=== PATIENT | male | born 1945 | race Caucasian/White ===

== ENCOUNTER → 2016-09-07 | Outpatient (CLI) | payer OTHER, MEDICARE ==
[2016-09-07 08:42] LABS: HEMATOCRIT 46.5 % (42.0-52.0); HEMOGLOBIN 15.8 gm/dL (14.0-18.0); MCH 32.6 pg (26.0-34.0); MCHC 34.1 g/dL (28.0-37.0); MCV 95.5 fL (80.0-100.0); RBC 4.87 mil/uL (4.50-6.00); RDW 12.7 % (10.5-14.5)
[2016-09-07 08:50] LABS: CALCIUM 9.1 mg/dL (8.5-10.1); CREATININE 1.3 mg/dL (0.7-1.3); POTASSIUM 4.4 mmol/L (3.5-5.1)
[2016-09-07 08:55] LABS: ALBUMIN 3.4 g/dL (3.4-5.0); TOTAL BILIRUBIN 0.6 mg/dL (<0.1-1.0)
== END ==
LOC: CAT 07:36 → CATH 13:48
PROVIDERS: Internal Medicine Cardiovascular Disease
DX: I48.91 Unspecified atrial fibrillation (principal)

== ENCOUNTER 2016-10-01 06:41 | Observation (INO) | payer OTHER, MEDICARE ==
[2016-10-01] VITALS (8 sets, daily range): BP systolic 93–134; BP diastolic 51–76
[~2016-10-01] VITALS: Ht 180.3 cm; Wt 89.0 kg
--- NOTE | ~2016-10-01 | P ---
[facility] [place] [address] PROCEDURE REPORT Name: TUSHAR TOTH Room #: REG Edwina Ta.#: [id number] Admission: 10/01/16 Attend Phys: Samuel Daniel MD Discharge: Date of : 45 Report #: [id number] THIS REPORT FOR: //name// CC: YOANNA Daniel PROCEDURE: AFib ablation. PREOPERATIVE DIAGNOSIS: Paroxysmal atrial fibrillation. POSTOPERATIVE DIAGNOSIS: Paroxysmal atrial fibrillation. HISTORY: The patient is a 71-year-old with paroxysmal AFib, who has failed anti-arrhythmic drug therapy and is here for an ablation. DESCRIPTION OF PROCEDURE: The patient underwent informed consent. We discussed the details of the procedure including the risks, which include but not limited to bleeding, infection, cardiac perforation, stroke or IN. He understood these risks and is willing to proceed. He was brought to the EP laboratory in fasting and sedated state, prepped and draped in a sterile fashion. I injected 10 mL of lidocaine into the right groin and obtained access to the right femoral vein times 3, placing 8, 9 and 7-Ukrainian locking sheaths using the modified Seldinger technique. Under fluoroscopic guidance, I placed a decapolar catheter easily in the coronary sinus and an ice catheter into the right atrium. He had what appeared to be a nice thin-appearing septum. The patient was systemically heparinized and using an SL1 sheath and [place] needle, the transseptal was performed. I crossed in the mid anterior septum with the needle. I did have some difficulty advancing the SL1 sheath over the wire as there was some fibrosis in the septum. Eventually, I was able to cross. Then, I exchanged the SL1 sheath for the Cryo sheath and again this was somewhat challenging. I had to torque the sheath to try and cross the septum. Eventually, we crossed and the cryoballoon was placed in the left atrium. At baseline, the patient was in sinus rhythm with a sinus cycle length of 1075 milliseconds, NH interval 165 milliseconds, QRS duration 80 milliseconds and QT interval 470 milliseconds. I first isolated the left superior pulmonary vein and this isolated within 73 seconds and I performed a single 4-minute freeze in this vein. I then turned my attention to the left inferior pulmonary vein and this vein was isolated within 2 freezes each of 4 minutes' duration. Next, I turned my attention to the right superior pulmonary vein. During the second freeze, the vein isolated at 150 seconds. The second freeze was 270 seconds in duration. The right inferior pulmonary vein isolated within 90 seconds of the first freeze. I performed two 4-minute freezes in this vein. All the veins were re-interrogated and were found to be isolated. As such, the [address] [address] PROCEDURE REPORT Name: TUSHAR TOTH Room #: REG OMAR Sawant#: [id number] Admission: 10/01/16 Attend Phys: Samuel Daniel MD Discharge: Date of : 45 Report #: [id number] procedure was concluded. Using intracardiac ultrasound, I verified there was no pericardial effusion. As such, all catheters were pulled. Next, the patient received systemic protamine. Once the ACT was within acceptable range, sheaths were pulled and hemostasis obtained. The patient awoke neurologically and hemodynamically intact. No complications. No significant bleeding. Post-ablation, he was in sinus rhythm with a sinus cycle length of 825 milliseconds, NH interval 170 milliseconds, QRS duration 80 milliseconds and QT interval 425 milliseconds. CONCLUSIONS: Successful atrial fibrillation ablation with isolation of the 4 pulmonary veins using the cryoablation balloon. By: 1055 1144 Samuel Daniel MD /nt
[2016-10-01] MEDS ORDERED: ASPIR 8181 MG PO (07:07)
[2016-10-01] MEDS ORDERED: ELIQUIS5 MG PO (07:07)
[2016-10-01] MEDS ORDERED: TOPROL XL25 MG PO (07:07)
[2016-10-01] MEDS ORDERED: RYTHMOL SR225 MG PO (07:08)
[2016-10-01] MEDS ORDERED: SIMVASTATIN40 MG PO (07:08)
[2016-10-01 07:18] LABS: HEMATOCRIT 49.5 % (42.0-52.0); HEMOGLOBIN 16.8 gm/dL (14.0-18.0); MCH 32.4 pg (26.0-34.0); MCHC 33.9 g/dL (28.0-37.0); MCV 95.7 fL (80.0-100.0); PLATELET COUNT 155 thou/uL (150-400); RBC 5.17 mil/uL (4.50-6.00); WBC 6.3 thou/uL (4.0-11.0)
[2016-10-01 07:19] LABS: MANUAL DIFF YES
[2016-10-01 07:28] LABS: CALCIUM 9.2 mg/dL (8.5-10.1); CREATININE 1.3 mg/dL (0.7-1.3); POTASSIUM 4.7 mmol/L (3.5-5.1)
[2016-10-01 07:32] LABS: APTT 30.7 Seconds (24.5-32.8); INR 1.1
[2016-10-01 07:33] LABS: ALBUMIN 3.7 g/dL (3.4-5.0); TOTAL BILIRUBIN 0.6 mg/dL (<0.1-1.0); TOTAL PROTEIN 7.5 g/dL (6.4-8.2)
[2016-10-01 08:24] LABS: ABSOLUTE NEUTROPHILS 3.7 thou/uL (1.4-8.2); TOTAL CELL COUNT 100
[2016-10-01 08:25] LABS: ANISOCYTOSIS SLIGHT
[2016-10-02 03:24] VITALS: BP 98/51
[2016-10-02 07:20] VITALS: BP 110/63
[2016-10-02 09:52] VITALS: BP 110/63
[2016-10-02 09:54] VITALS: BP 123/66
== END 2016-10-02 10:43 | disposition home or self-care (01) ==
LOC: CATH 06:41 → 2N 12:25 → CATH 12:27 → 2N 10-02 10:43
PROVIDERS: Internal Medicine Cardiovascular Disease
DX: I48.0 Paroxysmal atrial fibrillation (principal)
CPT/HCPCS: 62110; 62900; 70005

== ENCOUNTER 2017-12-29 11:44 | Inpatient (IN) | payer OTHER, MEDICARE ==
[~2017-12-29] VITALS: Ht 182.9 cm; Wt 84.0 kg
--- NOTE | ~2017-12-29 | 2DMMODE ---
[facility] [address] [place] [address] 2 D/M-MODE ECHOCARDIOGRAM Name: MABELBRIATUSHAR BLANK Room #: 214-P [facility] IN M..#: [id number] Admission: 12/29/17 Attend Phys: Sunil Veliz, Discharge: Date of : 45 Date of Service: 12/30/17 1113 Report #: [id number] THIS REPORT FOR: //name// APPROVED REPORT Study performed: 12/30/2017 09:44:50 EXAM: Comprehensive 2D, Doppler, and color-flow Echocardiogram Patient Location: In-Patient Room #: 214 Status: routine BSA: 2.08 HR: 56 bpm BP: 108/65 mmHg Other Information Study Quality: Adequate Indications Congestive Heart Failure Fever S/P ablation 12/25/2017 2D Dimensions RVDd: 36.68 mm IVSd: 7.61 (7-11mm) LVOT Diam: 23.25 (18-24mm) LVDd: 46.89 mm PWd: 8.57 (7-11mm) Ascending Ao: 28.09 (22-36mm) LVDs: 30.69 (25-40mm) Aortic Root: 29.40 mm IVC: 12.00 mm Volumes Left Atrial Volume (Systole) Single Plane 4CH: 34.59 mL Single Plane 2CH: 51.11 mL LA ESV Index: 23.00 mL/m2 Aortic Valve AoV Peak Zachery.: 1.13 m/s AO Peak Gr.: 5.08 mmHg LVOT Max P.25 mmHg LVOT Max V: 1.15 m/s JAIDEN Vmax: 4.31 cm2 Mitral Valve E/A Ratio: 1.2 MV Decel. Time: 328.04 ms MV E Max Zachery.: 0.71 m/s [facility] [address] [place] [address] 2 D/M-MODE ECHOCARDIOGRAM Name: TUSHAR TOTH Room #: 214-P [facility] IN M.R.#: [id number] Admission: 12/29/17 Attend Phys: Sunil Veliz, Discharge: Date of : 45 Date of Service: 12/30/17 1113 Report #: [id number] MV A Zachery.: 0.57 m/s MV PHT: 95.13 ms IVRT: 103.81 ms Pulmonary Valve PV Peak Zachery.: 0.90 m/s PV Peak Gr.: 3.27 mmHg Pulmonary Vein P Vein S: 0.52 m/s P Vein A: 0.17 m/s P Vein D: 0.63 m/s P Vein A Dur.: 124.6 msec P Vein S/D Ratio: 0.83 Tricuspid Valve TR Peak Zachery.: 2.54 m/s RAP Estimate: 5.00 mmHg TR Peak Gr.: 25.81 mmHg PA Pressure: 31.00 mmHg Left Ventricle The left ventricle is normal size. There is normal left ventricular wall thickness. The left ventricular systolic function is normal. The left ventricular ejection fraction is within the normal range. LVEF is 55-60%. Right Ventricle The right ventricle is normal size. The right ventricular systolic function is normal. Atria The left atrium size is normal. The right atrium size is normal. Aortic Valve The aortic valve is normal in structure. No aortic regurgitation is present. There is no aortic valvular stenosis. Mitral Valve The mitral valve is normal in structure. Trace to mild mitral regurgitation. No evidence of mitral valve stenosis. Tricuspid Valve The tricuspid valve is normal in structure. Trace tricuspid regurgitation. PAP is estimated at 31 mmHg. Pulmonic Valve The pulmonary valve is normal in structure. Mild pulmonic regurgitation. [facility] [address] [place] [address] 2 D/M-MODE ECHOCARDIOGRAM Name: NAVNEETTUSHAR BLANK Room #: 214-P [facility] IN .#: [id number] Admission: 12/29/17 Attend Phys: Sunil Veliz, Discharge: Date of : 45 Date of Service: 12/30/17 1113 Report #: [id number] Great Vessels The aortic root is normal in size. IVC is normal in size and collapses >50% with inspiration. Pericardium There is no pericardial effusion. <Conclusion> The left ventricle is normal size. LVEF is 55-60%. The right ventricle is normal size. The left atrium size is normal. The aortic valve is normal in structure. Trace to mild mitral regurgitation. Trace tricuspid regurgitation. PAP is estimated at 31 mmHg. The aortic root is normal in size. There is no pericardial effusion. <ELECTRONICALLY SIGNED> By: Sunil Veliz MD, FACC 12/30/17 1113 1113 111 Sunil Veliz MD, FACC /INF
--- NOTE | ~2017-12-29 | EKG ---
[address] [address] ELECTROCARDIOGRAM REPORT Name: NAVNEETTUSHAR Room #: 214-[facility] IN M.R.#: [id number] Admission: 12/29/17 Attend Phys: Sunil Veliz MD, Discharge: 01/01/18 Date of : 45 Report #: [id number] THIS REPORT FOR: //name// [facility] Test Date: 2018-01-01 Test Time: 08:28:48 Pat Name: TUSHAR TOTH Department: Room: 214 P Gender: M General Education Professor: CLAUDIO : 1945 Requested By: Samuel Daniel Order Number: [id number] MD: Samuel Daniel Measurements Intervals Aurora Rate: 47 P: 45 CO: 154 QRS: 8 QRSD: 90 T: 30 QT: 488 QTc: 432 Interpretive Statements Sinus bradycardia Borderline low voltage, extremity leads Baseline wander in lead(s) V6 Compared to ECG 12/30/2017 06:30:27 Sinus rhythm no longer present Electronically Signed On 01-01-2018 16:25:06 CDT by Samuel Daniel [email or web address] <ELECTRONICALLY SIGNED> By: Samuel Daniel MD 01/01/18 1625 7 7 Samuel Daniel MD /EPI
--- NOTE | ~2017-12-29 | EKG ---
[address] [address] ELECTROCARDIOGRAM REPORT Name: TUSHAR TOTH Room #: 214-P ADM IN M.R.#: [id number] Admission: 12/29/17 Attend Phys: Sunil Veliz MD, Discharge: Date of : 45 Report #: [id number] THIS REPORT FOR: //name// [facility] [place] [place] Test Date: 2017-12-29 Test Time: 15:18:53 Pat Name: TUSHAR TOTH Department: Room: 214 P Gender: M Bridge Crane Operator: tessa : 1945 Requested By: Sunil eVliz Order Number: [id number] MD: Samuel Daniel Measurements Intervals [place] Rate: 82 P: 53 TN: 162 QRS: -22 QRSD: 84 T: 34 QT: 369 QTc: 431 Interpretive Statements Sinus rhythm Borderline left axis deviation No previous ECG available for comparison Electronically Signed On 12-30-2017 17:39:47 CDT by Samuel Daniel [email or web address] <ELECTRONICALLY SIGNED> By: Samuel Daniel MD 12/30/17 1739 1518 17 Samuel Daniel MD /ERIKA
--- NOTE | ~2017-12-29 | HC ---
[facility] [place] [address] CONSULTATION Name: TUSHAR TOTH Room #: 214-P ADM IN M.R.#: [id number] Admission: 12/29/17 Attend Phys: Sunil Veliz MD, Discharge: Date of : 45 Report #: [id number] THIS REPORT FOR: //name// CC: FAM physician/PCP Sunil Veliz DATE OF SERVICE: 12/30/2017 ATTENDING PHYSICIAN: Dr. Veliz. CONSULTATION REQUESTED BY: Samuel Daniel MD. REASON FOR CONSULTATION: Antibiotic management. HISTORY OF PRESENT ILLNESS: This is a 72-year-old white man admitted with dysuria, frequent urination and fevers and malaise that failed to respond to oral Augmentin. The patient recently hospitalized on 12/25/2017 and he undergoes atrial flutter/fibrillation ablation procedure by Dr. Samuel Daniel. He did require orotracheal intubation and also placement of Ghotra catheter. The patient goes on developing a urinary symptomatology and fever and I discussed the patient's situation with Dr. Samuel Daniel and recommend Augmentin 875 mg b.i.d. I did discuss again with Dr. Sunil Veliz on Saturday and recommended admission and started the patient on meropenem 1 gram IV every 8 hours. The patient feels some better today. During echocardiogram and left lateral decubitus, he did experience a brief episode of right lower abdominal quadrant pain. DRUG ALLERGIES: None listed. MEDICATIONS: The patient is currently on treatment with vancomycin 1 gram single dose today, sotalol 80 mg b.i.d., atorvastatin 20 mg at bedtime, apixaban 5 mg b.i.d., prednisolone ophthalmic q.i.d., meropenem 1 g IV every 8 hours. SOCIAL HISTORY: Retired hospital university administrator. . Three children. Living in [place]. REVIEW OF SYSTEMS: As above. PHYSICAL EXAMINATION: GENERAL: Well-developed, not toxic looking man. VITAL SIGNS: Presenting a temperature of 103 on 12/29/2017 at 17:06, at 100.8 this morning, pulse 60, respirations 17, BP on the low side 99/50 today. HEENMT: Within range. NECK: Supple, no thyromegaly. LYMPHATIC: Lymph nodes are negative. LUNGS: Clear to auscultation. [facility] [address] [place] [address] CONSULTATION Name: TUSHAR TOTH Room #: 214-P [facility] IN M.R.#: [id number] Admission: 12/29/17 Attend Phys: Sunil Veliz MD, Discharge: Date of : 45 Report #: [id number] HEART: S1, S2. No gallop or murmur. ABDOMEN: Minimal discomfort right lower abdominal quadrant. GENITALIA AND RECTAL: Deferred. EXTREMITIES: No clubbing, cyanosis, no superficial phlebitis, no hematoma of groin. LABORATORY DATA: Chest x-ray normal. The previous left basilar atelectasis has resolved. Sodium 132, potassium 3.9, BUN 15, creatinine 1.4, glucose 113, albumin 3 g/dL. WBC yesterday 16.8, hemoglobin 15.5, platelets 132,000. Repeat CBC today revealed a white blood cell count down to 15,800, hemoglobin 14.2 g/dL, platelets 141,000. No white blood cell count differential. Blood and urine cultures negative. ASSESSMENT: 1. Acute urinary tract infection, possible prostatitis versus pyelonephritis, undetermined organism. 2. Persistent fever secondary to above. 3. Leukocytosis, improving. 4. Status post recent ablation for atrial flutter/fibrillation. 5. Dyslipidemia. SUGGESTIONS: Recommend continue treatment with meropenem 1 gram IV every 8 hours. I have nothing against the prescription for vancomycin. We will have pharmacy dose this, but I doubt we are dealing with MRSA and UTI. We will obtain MRSA screen, ESR and CRP as well as procalcitonin. Dr. Samuel Daniel, thank you for requesting my suggestions. <ELECTRONICALLY SIGNED> By: Cornelius Daniel MD 12/30/17 1413 1139 1359 Cornelius Daniel MD /nt
--- NOTE | ~2017-12-29 | H ---
[facility] [place] [address] HISTORY AND PHYSICAL Name: TUSHAR TOTH Room #: 214-P [facility] IN M.R.#: [id number] Admission: 12/29/17 Attend Phys: Sunil Veliz MD, Discharge: 01/01/18 Date of : 45 Report #: [id number] THIS REPORT FOR: //name// CC: MAKAYLA physician/PCP Sunil Veliz DATE OF SERVICE: 12/29/2017 HISTORY OF PRESENT ILLNESS: The patient is a 72-year-old male, well known to myself and my partner, Dr. Daniel. He is status post a repeat AFib ablation last week. He subsequently was seen on Saturday with some fever and some dysuria. A UA suggested, although culture was not back, a possible urinary tract infection. He was started on Augmentin b.i.d. Did not receive a dose on Saturday. I was called yesterday, still having intermittent fevers to 103 and generalized malaise with some mild dysuria. He was able to take fairly decent p.o. intake. Still having 103 temperature this morning now after 4 doses of Augmentin and diarrhea, and certainly not confused, but somewhat lethargic. I made him a direct admit to the CCU for IV antibiotics, urine culture, chest x-ray, blood cultures. He has maintained in sinus rhythm with a rate in the 70s. He has been febrile even here in the hospital to 103. No syncope or presyncope. He has had a history of bradycardia on the sotalol in the past when he was transiently at [facility] with AFib, although his rate is in 70s here. CURRENT MEDICATIONS: At home are Eliquis 5 b.i.d., simvastatin 40 and sotalol 80 b.i.d. PAST MEDICAL HISTORY: Positive for the recurrent paroxysmal AFib, mild cardiomyopathy was felt to be due to the AFib and tachycardia initially, EF in the 40-45% range. There has been some mild heart failure exacerbation, although none recently. Borderline hypertension, hyperlipidemia, sleep apnea, prior syncope, hernia repair, loop monitor placement, Achilles tendon repair and now his second AFib ablation. SOCIAL HISTORY: He is . They have children. 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 He predominantly lives in [place]. His children are here in town. He has never been on tobacco, some very minimal social alcohol use. FAMILY HISTORY: Negative for premature coronary artery disease or sudden . LABORATORY DATA: Relatively unremarkable. Creatinine is 1.4. White count is 16,000; otherwise normal limits. REVIEW OF SYSTEMS: Essentially negative except for this urinary tract dysuria issue and now some increased frequency. PHYSICAL EXAMINATION: [facility] [address] [place] [address] HISTORY AND PHYSICAL Name: TUSHAR TOTH Room #: 214-P [facility] IN M.R.#: [id number] Admission: 12/29/17 Attend Phys: Sunil Veliz MD, Discharge: 01/01/18 Date of : 45 Report #: [id number] GENERAL: He is flushed, but he is in no distress. He is completely oriented. VITAL SIGNS: Blood pressure 130/74, pulse 70s. HEENT: Eyes reveal xanthelasmas. Pharynx is clear. NECK: Shows preserved upstrokes without JVD or bruits. LUNGS: Clear. CARDIAC: Regular rate and rhythm, S1, S2. There is no murmur or gallop. ABDOMEN: Soft. No HSM or abdominal bruit. EXTREMITIES: Reveal no edema. The groin appears stable. No significant hematoma or ecchymosis. NEUROLOGIC: Intact. MUSCULOSKELETAL: No gross joint deformity, mild arthritic changes. SKIN: Warm and dry without xanthoma or ulcer. ASSESSMENT: 1. Urosepsis with persistent high fever, dysuria, awaiting urine culture. 2. Status post repeat atrial fibrillation ablation 1 week prior. 3. Hypercholesterolemia. 4. Obstructive sleep apnea. 5. 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 RECOMMENDATIONS AND PLAN: I have instituted meropenem after discussion with Dr. Cornelius Daniel of Infectious Disease. I will continue his cardiac meds including his novel agent, his DOAC. There has been no bleeding issue. A urine culture has been repeated. I have a set of blood cultures that have been sent and we will repeat the CBC in the a.m. He is taking adequate p.o. intake. We will repeat the EKG in the a.m. in addition. I do not see any other obvious source for this infection. Chest x-ray was unremarkable 48 hours ago. I will repeat a chest x-ray in the morning in addition. <ELECTRONICALLY SIGNED> By: Sunil eVliz MD, FACC 01/08/18 1257 1731 1749 Sunil Veliz MD, FACC /nt
--- NOTE | ~2017-12-29 | D ---
[facility] [place] [address] DISCHARGE SUMMARY Name: TUSHAR TOTH Room #: 214-P [facility] IN M.R.#: [id number] Admission: 12/29/17 Attend Phys: Sunil Veliz MD, Discharge: 01/01/18 Date of : 45 Report #: [id number] THIS REPORT FOR: //name// CC: MAKAYLA physician/PCP Sunil Veliz DATE OF SERVICE: 01/01/2018 HOSPITAL COURSE: The patient is a 72-year-old male who was admitted by me over the weekend. He was status post repeat AFib ablation. Was doing well from a cardiovascular perspective, but had persistently high fevers, felt to be due to instrumentation for Ghotra catheter. No other source of urinary tract infection. Attempted to treat outpatient 3-4 doses of Augmentin, but still persistent fevers to 103. Subsequently, he was brought in and initiated on meropenem q.8h. per Infectious Disease recommendations. Vancomycin was also added. He has remained in sinus rhythm, sinus naresh. He has remained anticoagulated. The urine culture has not grown out yet. Blood cultures have also been sent. They were negative. He was significantly ill at his admission. Markedly improved currently. He will be discharged to home on Eliquis 5 b.i.d., simvastatin 40. We are holding the sotalol now for 3 doses and then, we will discontinue sotalol and initiate flecainide tomorrow night because of QT issues. Baby aspirin will also continue. Levaquin 750 q. day for 1 week. Resume regular aerobic activity. DISCHARGE DIAGNOSES: 1. Complicated urinary tract infection/pyelonephritis/urosepsis. 2. Mild idiopathic cardiomyopathy. 3. Status post repeat atrial fibrillation ablation. 4. Hypercholesterolemia. RECOMMENDATIONS AND PLANS: As stated above. The patient has followup scheduled in March. He will call with any issues. <ELECTRONICALLY SIGNED> By: Sunil Veliz MD, FACC 01/08/18 1257 0917 1155 Sunil Veliz MD, FACC /nt
[~2017-12-29 11:44] MED LIST: ASPIR 8181 MG PO; ELIQUIS5 MG PO; RYTHMOL SR225 MG PO; SIMVASTATIN40 MG PO; SORINE 80 MG TA80 MG PO; TOPROL XL25 MG PO
[2017-12-29 12:29] VITALS: BP 134/71
[2017-12-29 13:00] LABS: HEMATOCRIT 45.1 % (42.0-52.0); HEMOGLOBIN 15.5 gm/dL (14.0-18.0); MCH 32.5 pg (26.0-34.0); MCHC 34.3 g/dL (28.0-37.0); MCV 94.8 fL (80.0-100.0); RBC 4.76 mil/uL (4.50-6.00); RDW 12.7 % (10.5-14.5); WBC 16.8 thou/uL (4.0-11.0)
[2017-12-29] MEDS ORDERED: CLAVULANATE PO (13:01)
[2017-12-29] MEDS ORDERED: AMOXICILLIN PO (13:01)
[2017-12-29] MEDS ORDERED: PAIN & FEVER500 MG PO (13:03)
[2017-12-29 13:09] LABS: CALCIUM 8.9 mg/dL (8.5-10.1); CREATININE 1.4 mg/dL (0.7-1.3); POTASSIUM 3.9 mmol/L (3.5-5.1)
[2017-12-29 13:15] LABS: TOTAL BILIRUBIN 0.9 mg/dL (<0.1-1.0); TOTAL PROTEIN 7.6 g/dL (6.4-8.2)
[2017-12-29] MEDS ORDERED: PRED-FORTE OPHTH1 M1 OPHTHALMIC (13:28)
[2017-12-29 13:41] LABS: URINE BILIRUBIN NEGATIVE (Negative); URINE BLOOD 3+ (Negative); URINE CLARITY CLEAR; URINE COLOR YELLOW; URINE GLUCOSE-RANDOM* NEGATIVE (Negative); URINE KETONES 1+ (Negative); URINE LEUKOCYTES-REFLEX NEGATIVE (Negative); URINE NITRITE-REFLEX NEGATIVE (Negative); URINE PROTEIN (DIPSTICK) 1+ (Negative); URINE SPECIFIC GRAVITY 1.025 (1.005-1.035); URINE UROBILINOGEN 0.2 E.U./dl (0.2-1.0)
[2017-12-29 13:51] LABS: BACTERIA-REFLEX 1-9 Few /HPF (None Seen); URINE WBC-REFLEX 6-15 Few /HPF (0-5)
[2017-12-29 13:52] LABS: CASTS None Seen /LPF (None Seen); CRYSTALS None Seen /LPF (None Seen); SQUAMOUS None Seen /LPF (0-3); URINE RBC 3-10 Few /HPF (0-2)
[2017-12-29 15:52] VITALS: BP 132/75
[2017-12-29 19:34] VITALS: BP 112/64
[2017-12-30 04:33] LABS: HEMATOCRIT 42.4 % (42.0-52.0); HEMOGLOBIN 14.2 gm/dL (14.0-18.0); MCH 31.7 pg (26.0-34.0); MCHC 33.5 g/dL (28.0-37.0); MCV 94.8 fL (80.0-100.0); RBC 4.47 mil/uL (4.50-6.00); RDW 12.5 % (10.5-14.5); WBC 15.8 thou/uL (4.0-11.0)
[2017-12-30 07:39] VITALS: BP 108/65
[2017-12-30 11:15] VITALS: BP 99/50
[2017-12-30 15:49] VITALS: BP 110/72
[2017-12-30 20:20] VITALS: BP 120/66
[2017-12-31 04:54] VITALS: BP 116/65
[2017-12-31 07:36] VITALS: BP 108/65
[2017-12-31 09:18] LABS: HEMATOCRIT 42.1 % (42.0-52.0); HEMOGLOBIN 14.6 gm/dL (14.0-18.0); MCH 32.7 pg (26.0-34.0); MCHC 34.8 g/dL (28.0-37.0); RBC 4.47 mil/uL (4.50-6.00); RDW 12.4 % (10.5-14.5); WBC 8.9 thou/uL (4.0-11.0)
[2017-12-31 11:37] VITALS: BP 115/65
[2017-12-31 17:33] VITALS: BP 106/65
[2017-12-31 20:18] VITALS: BP 119/70
[2018-01-01 04:20] VITALS: BP 124/70
[2018-01-01 08:00] VITALS: BP 103/68
[2018-01-01] MEDS ORDERED: TAMBOCOR 100 M100 M1 PO (08:43)
[2018-01-01] MEDS ORDERED: LEVAQUIN 500 M500 M1 PO (08:57)
[2018-01-01 09:37] VITALS: BP 103/68
== END 2018-01-01 10:19 | disposition home or self-care (01) | DRG 872 ==
LOC: 2N 11:44 → ENTRNSPT 01-01 09:59 → 2N 01-01 10:19 → CMPTRNSPT 01-01 10:20
PROVIDERS: Internal Medicine Cardiovascular Disease
DX: A41.9 Sepsis, unspecified organism (principal); N12 Tubulo-interstitial nephritis, not specified as acute or chronic; I48.92 Unspecified atrial flutter; I42.9 Cardiomyopathy, unspecified; E78.5 Hyperlipidemia, unspecified; I45.81 Long QT syndrome; I50.9 Heart failure, unspecified; E78.00 Pure hypercholesterolemia, unspecified; I48.0 Paroxysmal atrial fibrillation; G47.33 Obstructive sleep apnea (adult) (pediatric); Z79.899 Other long term (current) drug therapy; Z98.49 Cataract extraction status, unspecified eye; Z87.891 Personal history of nicotine dependence
CPT/HCPCS: 10081

== ENCOUNTER → 2019-01-01 | Outpatient (CLI) | payer OTHER ==
[~2019-01-01] MED LIST changes: +AMOXICILLIN PO; +CLAVULANATE PO; +LEVAQUIN 500 M500 M1 PO; +PAIN & FEVER500 MG PO; +PRED-FORTE OPHTH1 M1 OPHTHALMIC; +TAMBOCOR 100 M100 M1 PO
== END ==
LOC: CAT 09:34
DX: Z13.6 Encounter for screening for cardiovascular disorders (principal); E78.00 Pure hypercholesterolemia, unspecified; I25.10 Atherosclerotic heart disease of native coronary artery without angina pectoris

== ENCOUNTER → 2019-01-02 | Outpatient (CLI) | payer OTHER, MEDICARE ==
[2019-01-02 12:19] VITALS: BP 126/66
--- NOTE | 2019-01-13 15:57 | P ---
[facility] [place] [address] PROCEDURE REPORT Name: TUSHAR TOTH Room #: REG [facility] [place].#: [id number] Admission: 01/02/19 Attend Phys: Samuel Daniel MD Discharge: Date of : 45 Report #: [id number] THIS REPORT FOR: //name// CC: MAKAYLA physician/PCP Samuel Daniel DATE OF SERVICE: 01/02/2019 PROCEDURE: Implantable loop recorder removal and replacement. HISTORY: The patient is a 73-year-old with history of paroxysmal atrial fibrillation and flutter whose Medtronic implantable loop recorder is at the end of service. He is here for removal of this device and implantation of a new monitor. DESCRIPTION OF PROCEDURE: The patient underwent informed consent. He was prepped and draped in a sterile fashion. I then injected lidocaine at the prior incision site. Incision was made and then after about 10-15 minutes of work, I was able to finally pull out the old device. I then injected the new device at the same location. A single layer of suture was performed at the incision site and surgical glue was placed to the outer skin layer. There were no procedure related complications. The explanted device was a [employer]tronic LINQ. The newly implanted device was a [employer], model #3500, serial #[id number]. CONCLUSIONS: Successful removal and replacement of an implantable loop recorder. <ELECTRONICALLY SIGNED> By: Samuel Daniel MD 01/13/19 1557 1416 2342 Samuel Daniel MD /nt
== END | disposition home or self-care (01) ==
LOC: CATH 09:46
DX: Z45.09 Encounter for adjustment and management of other cardiac device (principal); I48.0 Paroxysmal atrial fibrillation; I48.92 Unspecified atrial flutter; Z79.899 Other long term (current) drug therapy

== ENCOUNTER → 2020-03-29 | Outpatient (CLI) | payer OTHER, MEDICARE | LOC: SJCVCIMAG 07:42 | PROVIDERS: ATTEND Internal Medicine Cardiovascular Disease | DX: I48.91 Unspecified atrial fibrillation (principal); I49.3 Ventricular premature depolarization; I47.1 Supraventricular tachycardia; I42.9 Cardiomyopathy, unspecified; I50.9 Heart failure, unspecified; Z79.82 Long term (current) use of aspirin; Z79.899 Other long term (current) drug therapy ==